=== PATIENT | female | born 1945 | race Caucasian/White ===

== ENCOUNTER 2017-01-02 15:46 | Outpatient (RCR) | payer MEDICARE, BC ==
[2017-01-02 16:00] VITALS: BP 132/67
[2017-01-02] MEDS ORDERED: LEVOTHYROXIN0.075 MG PO (16:18)
[2017-01-02] MEDS ORDERED: FENOFIBRATE145 MG PO (16:19)
[2017-01-02] MEDS ORDERED: DULOXETINE60 MG PO (16:19)
[2017-01-02] MEDS ORDERED: ARIMIDEX1 MG PO (16:22)
[2017-01-02] MEDS ORDERED: FOSAMAX 70MG TA70 MG PO (16:22)
[2017-01-02] MEDS ORDERED: CALCIUM CARBONATE PO (16:23)
[2017-01-02] MEDS ORDERED: VITAMIN D 1001000 IU PO (16:24)
[2017-01-02] MEDS ORDERED: COENZYME Q-10100 M1 PO (16:25)
[2017-01-02] MEDS ORDERED: CARDIZEM120 M1 PO (16:26)
[2017-01-02] MEDS ORDERED: HYDROCHLOROTHIA50 M1 PO (16:27)
[2017-01-02] MEDS ORDERED: ICAPS MV TABLE1 EACH PO (16:27)
[2017-01-02] MEDS ORDERED: CLARITIN10 M1 PO (16:27)
[2017-01-02] MEDS ORDERED: PRILOSEC 20MG20 MG PO (16:28)
[2017-01-02 17:03] VITALS: BP 120/62
[2017-01-03 15:15] VITALS: BP 140/71
[2017-01-03 16:37] VITALS: BP 112/61
[2017-01-04 14:30] VITALS: BP 145/68
[2017-01-04 16:05] VITALS: BP 140/64
== END 2017-01-04 17:30 | disposition home or self-care (01) ==
LOC: AMSURD 15:46
DX: N39.0 Urinary tract infection, site not specified (principal); B96.1 Klebsiella pneumoniae [K. pneumoniae] as the cause of diseases classified elsewhere
CPT/HCPCS: J0278; J7050